=== PATIENT | male | born 1955 | race American Indian/Alaskan Native ===

== ENCOUNTER 2017-06-06 09:04 | Emergency (ER) | payer BC ==
[2017-06-06 09:18] VITALS: BP 131/89
--- NOTE | 2017-06-06 09:57 | XRay Report ---
RIGHT KNEE, 3 views: History: Right knee pain and swelling. The bony architecture is intact without evidence of fracture or dislocation. A large joint effusion extends to the suprapatellar bursa. IMPRESSION: Large joint effusion. No osseous abnormality detected. If internal derangement is suspected, MRI right knee without contrast could be obtained.
[2017-06-06] MEDS ORDERED: MOTRIN PO ONE (13:34)
--- NOTE | 2017-06-06 13:44 | Emergency Department Report ---
ED Extremity Problem HPI - General Chief complaint: Extremity Injury, Lower Stated complaint: RIGHT KNEE SWOLLEN Time Seen by Provider: 06/06/17 13:25 Source: patient Mode of arrival: Ambulatory Limitations: No Limitations - History of Present Illness Initial comments: PT states he has hx of arthritis and gout. PT states he was seen in ED 1 month ago for R ankle pain. PT states he was given a RX for four or five pills and told to follow up. PT states his Doctor is no longer working in [place] and he has an appointment with a new doctor 06-20-17. Pt states his R knee started to ache about three days ago. PT states then it slowly started to swell. PT denies injury or trauma. PT denies cp, rash, fever, chill, n/v Complaint: joint swelling Onset/Timin -: Gradual, days(s) Location: right, knee History of Same: Yes -: No fever, No associated chest pain Severity scale (0 -10): 7 Quality: aching Consistency: constant Improves with: nothing Worsens with: weight bearing, walking, palpation Associated Symptoms: denies other symptoms. denies: chest pain, fever - Related Data Previous Rx's Medication Instructions Recorded Last Taken Type Indomethacin [Indocin] 25 mg PO Q8H PRN #9 capsule 06/06/17 Unknown Rx traMADol [Ultram] 50 mg PO Q6HR PRN #12 tablet 06/06/17 Unknown Rx Allergies Allergy/AdvReac Type Severity Reaction Status Date / Time No Known Allergies Allergy Unverified 06/06/17 09:13 ED Review of Systems ROS: Stated complaint: RIGHT KNEE SWOLLEN Other details as noted in HPI Comment: All other systems reviewed and negative Constitutional: denies: chills, fever, malaise Cardiovascular: denies: chest pain Gastrointestinal: denies: nausea, vomiting Musculoskeletal: joint swelling Skin: denies: rash, change in color ED Past Medical Hx - Past Medical History Previous Medical History?: Yes Additional medical history: Gout, Irregular HR requiring a pacemaker - Surgical History Hx Pacemaker: Yes - Social History Smoking Status: Current Every Day Smoker Substance Use Type: Alcohol, Prescribed - Medications Home Medications: Home Medications Medication Instructions Recorded Confirmed Last Taken Type Indomethacin [Indocin] 25 mg PO Q8H PRN #9 capsule 06/06/17 Unknown Rx traMADol [Ultram] 50 mg PO Q6HR PRN #12 tablet 06/06/17 Unknown Rx ED Physical Exam - General Limitations: No Limitations General appearance: alert, in no apparent distress - Head Head exam: Present: atraumatic, normocephalic, normal inspection - Eye Eye exam: Present: normal appearance, PERRL - ENT ENT exam: Present: normal exam, normal external ear exam - Neck Neck exam: Present: normal inspection, full ROM - Respiratory Respiratory exam: Present: normal lung sounds bilaterally, respiratory distress. Absent: chest wall tenderness - Cardiovascular Cardiovascular Exam: Present: regular rate, normal rhythm - GI/Abdominal GI/Abdominal exam: Present: soft, normal bowel sounds. Absent: tenderness, guarding, rebound - Extremities Exam Extremities exam: Present: normal capillary refill, joint swelling. Absent: full ROM, calf tenderness - Expanded Lower Extremity Exam Right Upper Leg exam: Present: normal inspection Knee exam: Present: tenderness, swelling, effusion, full knee extension. Absent : full ROM, ecchymosis, deformity, erythema Ankle exam: Present: normal inspection, full ROM. Absent: tenderness Neuro vascular tendon exam: Present: no vascular compromise - Back Exam Back exam: Present: normal inspection, full ROM - Neurological Exam Neurological exam: Present: alert, oriented X3, normal gait - Expanded Neurological Exam Expanded Patient oriented to: Present: person, place, time Speech: Present: fluid speech - Psychiatric Psychiatric exam: Present: normal affect, normal mood - Skin Skin exam: Present: warm, dry, intact, normal color. Absent: rash, erythema ED Course Vital Signs 06/06/17 09:13 Temperature 97.8 F Pulse Rate 76 Respiratory 18 Rate Blood Pressure 131/89 O2 Sat by Pulse 100 Oximetry - Reevaluation(s) Reevaluation #1: 06/06/17 13:46 PT aware of XR results. PT aware he will need to follow up with ORTHO. PT has no questions at this time. - Pulse Oximetry Interpretation Digit-Finger Initial Pulse Oximetry Readin Actions Taken: none ED Medical Decision Making - Radiology Data Radiology results: report reviewed XR R knee- large joint effusion - Differential Diagnosis OA, gout, joint effusion Critical Care Time: No Critical care attestation.: If time is entered above; I have spent that time in minutes in the direct care of this critically ill patient, excluding procedure time. ED Disposition Clinical Impression: Knee effusion, right Disposition: DC-01 TO HOME OR SELFCARE Is pt being admited?: No Does the pt Need Aspirin: No Condition: Stable Instructions: Osteoarthritis (ED), Knee Effusion (ED) Additional Instructions: Follow up with Ortho in 3-5 days No driving or ETOH after taking Ultram Prescriptions: Indomethacin [Indocin] 25 mg PO Q8H PRN #9 capsule PRN Reason: Pain , Severe (7-10) traMADol [Ultram] 50 mg PO Q6HR PRN #12 tablet PRN Reason: Pain Referrals: PRIMARY CARE, [Primary Care Provider] - 3-5 Days ANNIA MAYEN MD [Staff Physician] - 3-5 Days FLORES MARTINEZ MD [Staff Physician] - 3-5 Days [facility] [Outside] - 3-5 Days Time of Disposition: 14:01
== END 2017-06-06 14:46 | disposition home or self-care (01) ==
LOC: ED 09:04
DX: M25.461 Effusion, right knee (principal); F17.200 Nicotine dependence, unspecified, uncomplicated; M10.9 Gout, unspecified

== ENCOUNTER 2021-09-15 12:11 | Emergency (ER) | payer BC ==
--- NOTE | 2021-09-15 12:42 | Emergency Department Report ---
ED Abdominal Pain HPI - General Chief Complaint: Abdominal Pain Stated Complaint: STOMACH PAIN PUI?: No Time Seen by Provider: 09/15/21 12:31 Source: patient Mode of arrival: Ambulatory Limitations: No Limitations - History of Present Illness Initial Comments: Chief complaint abdominal pain HPI: This is a 66-year-old male with history of cardiomyopathy, pacemaker in situ, gout, dysrhythmia who presents with several months of abdominal pain. His PCP performed ultrasound. He came to the emergency department for CT scan for diagnosis. He has pinching sensation in the epigastric region and bilateral upper quadrants. He denies weight loss. He has mild nausea. Denies diarrhea. MD Complaint: abdominal pain -: Gradual, month(s) (3 months) Location: diffuse, LUQ, RUQ, epigastric Radiation: none Severity: moderate Severity scale (0 -10): 7 Consistency: intermittent Improves With: nothing Worsens With: nothing Associated Symptoms: nausea - Related Data Previous Rx's Medication Instructions Recorded Last Taken Type Indomethacin [Indocin] 25 mg PO Q8H PRN #9 capsule 06/06/17 Unknown Rx traMADoL [Ultram] 50 mg PO Q6HR PRN #12 tablet 06/06/17 Unknown Rx Allergies Allergy/AdvReac Type Severity Reaction Status Date / Time No Known Allergies Allergy Verified 09/15/21 12:45 ED Review of Systems ROS: Stated complaint: STOMACH PAIN Other details as noted in HPI Comment: All other systems reviewed and negative Constitutional: denies: chills, fever, malaise Respiratory: denies: cough, shortness of breath Cardiovascular: denies: chest pain Gastrointestinal: abdominal pain, nausea ED Past Medical Hx - Past Medical History Previous Medical History?: Yes Additional medical history: Gout, Irregular HR requiring a pacemaker - Surgical History Past Surgical History?: Yes Hx Pacemaker: Yes - Social History Smoking Status: Current Every Day Smoker Substance Use Type: Alcohol, Prescribed - Medications Home Medications: Home Medications Medication Instructions Recorded Confirmed Last Taken Type Indomethacin [Indocin] 25 mg PO Q8H PRN #9 capsule 06/06/17 09/15/21 Unknown Rx traMADoL [Ultram] 50 mg PO Q6HR PRN #12 tablet 06/06/17 09/15/21 Unknown Rx ED Physical Exam - General Limitations: No Limitations General appearance: alert, in no apparent distress - Head Head exam: Present: atraumatic, normocephalic - Eye Eye exam: Present: normal appearance - ENT ENT exam: Present: mucous membranes moist - Neck Neck exam: Present: normal inspection, full ROM - Respiratory Respiratory exam: Present: normal lung sounds bilaterally. Absent: respiratory distress, wheezes, rales, rhonchi - Cardiovascular Cardiovascular Exam: Present: regular rate, normal rhythm, normal heart sounds. Absent: systolic murmur, diastolic murmur, rubs, gallop - GI/Abdominal GI/Abdominal exam: Present: soft, normal bowel sounds. Absent: tenderness, guarding, rebound - Rectal Rectal exam: Present: deferred - Extremities Exam Extremities exam: Present: normal inspection - Neurological Exam Neurological exam: Present: alert, oriented X3 - Psychiatric Psychiatric exam: Present: normal affect, normal mood - Skin Skin exam: Present: warm, dry, intact, normal color. Absent: rash ED Course Vital Signs 09/15/21 09/15/21 09/15/21 12:29 12:44 12:45 Temperature 98.4 F 98.2 F Pulse Rate 69 83 Respiratory 18 18 Rate Blood Pressure 133/79 Blood Pressure 132/75 [Left] O2 Sat by Pulse 98 99 99 Oximetry 09/15/21 14:13 Temperature 98.2 F Pulse Rate 77 Respiratory 18 Rate Blood Pressure 150/89 Blood Pressure [Left] O2 Sat by Pulse 99 Oximetry ED Medical Decision Making - Lab Data Result diagrams: 09/15/21 12:43 09/15/21 12:43 - Medical Decision Making Abdominal pain: Differential diagnosis includes irritable bowel syndrome, diverticulitis, peptic ulcer disease, malignancy, constipation. CBC chemistry lipase within normal limits. With advanced age and significant symptoms, CT abdomen pelvis is indicated. I anticipate discharge. Tentative diagnosis IBS peptic ulcer disease. Referred to primary care physician for further evaluation. Also provided referral to GI specialist. My colleague will follow-up on results of the CT abdomen pelvis. Disposition will be determined by my colleague. Critical care attestation.: If time is entered above; I have spent that time in minutes in the direct care of this critically ill patient, excluding procedure time. ED Disposition Clinical Impression: Irritable bowel syndrome, Peptic ulcer disease Condition: Stable Referrals: PRIMARY MD SALVADOR [Primary Care Provider] - 3-5 Days JONH LÓPEZ MD [Staff Physician] - 3-5 Days
[2021-09-15 13:26] LABS: Basophils # (Auto) 0.1 K/mm3 (0.0-0.1); Basophils % (Auto) 1.3 % (0.0-1.8); Eosinophils # (Auto) 0.3 K/mm3 (0.0-0.4); Eosinophils % (Auto) 6.5 % (0.0-4.3); Hematocrit 46.1 % (35.5-45.6); Hemoglobin 14.9 gm/dl (11.8-15.2); Lymphocytes # (Auto) 1.6 K/mm3 (1.2-5.4); Lymphocytes % (Auto) 30.2 % (13.4-35.0); Mean Corpuscular HGB Conc 32 % (32-34); Mean Corpuscular Volume 83 fl (84-94); Monocytes # (Auto) 0.6 K/mm3 (0.0-0.8); Monocytes % (Auto) 12.1 % (0.0-7.3); Platelet Count 268 K/mm3 (140-440); Red Blood Count 5.58 M/mm3 (3.65-5.03); Red Cell Distribution Width 14.6 % (13.2-15.2)
[2021-09-15 14:15] LABS: Alanine Aminotransferase 14 units/L (7-56); Albumin 4.4 g/dL (3.9-5); BUN/Creatinine Ratio 16; Blood Urea Nitrogen 19 mg/dL (9-20); Calcium 9.3 mg/dL (8.4-10.2); Hemolysis Index 12
[2021-09-15 14:22] LABS: Bilirubin,Direct < 0.2 mg/dL (0-0.2)
--- NOTE | 2021-09-15 15:05 | Emergency Department Report ---
Blank Doc - Documentation Documentation: 1500-I assumed care. CT is pending. CT was noted. Patient was discharged. He was informed of the pulmonary nodules.
--- NOTE | 2021-09-15 17:15 | Cat Scan Report ---
CT ABDOMEN AND PELVIS WITH CONTRAST INDICATION / CLINICAL INFORMATION: Abdominal Pain. TECHNIQUE: Axial CT images were obtained through the abdomen and pelvis after 100 mL Omnipaque [address] scans at this location are performed using CT dose reduction for ALARA by means of automated exposure control. COMPARISON: None available. FINDINGS: LOWER CHEST: No acute findings. 2 tiny subpleural pulmonary nodules in the left lower lobe measuring up to 3.5 mm. LIVER: No significant abnormality. GALLBLADDER: No significant abnormality. BILE DUCTS: No significant abnormality. PANCREAS: No significant abnormality. SPLEEN: No significant abnormality. ADRENALS: No significant abnormality. RIGHT KIDNEY / URETER: Multilobulated simple cyst. No significant abnormality. LEFT KIDNEY / URETER: No significant abnormality. STOMACH / SMALL BOWEL: No significant abnormality. COLON: No significant abnormality. APPENDIX: No significant abnormality. PERITONEUM: No free fluid. No free air. No fluid collection. LYMPH NODES: No significant adenopathy. AORTA / ARTERIES: No significant abnormality. IVC / VEINS: No significant abnormality. URINARY BLADDER: No significant abnormality. REPRODUCTIVE ORGANS: Prostate is enlarged. ADDITIONAL FINDINGS: None. SKELETAL SYSTEM: Old, healed fracture of the posterior wall of the left acetabulum. 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 No acute osseous abnormality. IMPRESSION: 1. No acute process in the abdomen or pelvis. 2. Multiple incidental pulmonary nodule(s) in the left lower lobe measuring 3.5 mm with solid charact eristics. Recommendation according to Fleischner Society 2017 Guidelines: Low Risk Patient: No routin e follow-up; High Risk Patient: Optional CT at 12 months. Signer Name: Yazmin Ozuna MD Signed: 09/15/2021 5:10 PM Workstation Name: [id number]
[2021-09-15 17:57] VITALS: BP 146/85
== END 2021-09-15 17:56 | disposition home or self-care (01) ==
LOC: ED 12:11
DX: K58.9 Irritable bowel syndrome, unspecified (principal); K27.9 Peptic ulcer, site unspecified, unspecified as acute or chronic, without hemorrhage or perforation; Z98.890 Other specified postprocedural states; F17.200 Nicotine dependence, unspecified, uncomplicated
CPT/HCPCS: 36415; 74177; 80048; 80076; 83690; 85025; 99284; Q9967